=== PATIENT | female | born 1965 | race Caucasian/White ===

== ENCOUNTER 2016-06-13 10:25 | Outpatient (CLI) | payer OTHER, MEDICARE | END 2016-06-13 23:59 | DX: R06.02 Shortness of breath (principal) ==

== ENCOUNTER 2019-11-30 14:58 | Outpatient (CLI) | payer OTHER ==
--- NOTE | 2019-11-30 15:01 | XRAY Report ---
PROCEDURE: Shoulder 2 View RT INDICATIONS: RIGHT ROTATOR CUFF SYNDROME TECHNIQUE: 2 views of the shoulder were acquired. COMPARISON: None FINDINGS: Bones: No fractures or dislocations. There is a mild degree of AC joint osteoarthritis and no trauma found. No suspicious bony lesions. Visualized ribs appear intact. Soft tissues: No suspicious soft tissue calcifications. Note is made of surgical clips in a pattern suggestive of prior right breast carcinoma surgery. No osseous metastatic disease is seen.. IMPRESSION: Mild AC joint osteoarthritis, no trauma or subluxation found. Probable prior right-sided breast carcinoma surgery., Without visualized evidence of osseous metastatic disease. Reviewed by: Jose Henson MD on 11/30/2019 3:00 PM PDT Approved by: Jose Henson MD on 11/30/2019 3:00 PM PDT Station ID: [id number]
== END 2019-11-30 23:59 | disposition home or self-care (01) ==
LOC: DI.WCP 14:58
PROVIDERS: ATTEND Family Medicine
DX: M19.011 Primary osteoarthritis, right shoulder (principal)

== ENCOUNTER 2020-01-06 08:33 | Outpatient (CLI) | payer OTHER ==
--- NOTE | 2020-01-06 10:21 | MRI Report ---
PROCEDURE: Shoulder RT W/O INDICATIONS: ROTATOR CUFF SYNDROME TECHNIQUE: Noncontrast oblique coronal T2 fast spin echo with fat saturation, oblique sagittal T1 spin echo and T2 fast spin echo with fat saturation, axial T1 spin echo and T2 fast spin echo with fat saturation t hrough the shoulder. COMPARISON: None. FINDINGS: Image quality: Excellent. Rotator cuff: There is low-grade articular surface tearing of the anterior, mid, and posterior supras pinatus tendon at the humeral insertion site, with muscular tendinous junction extension. Mild T2 sig nal elevation within the anterior, mid, and posterior infraspinatus tendon at the humeral insertion s ite, indicating tendinopathy. Low-grade partial-thickness intrasubstance tearing of the upper subscap ularis tendon at the humeral insertion site. Teres minor is intact. No rotator cuff atrophy. Bones and bursae: No bone marrow contusions or fractures. Moderate acromioclavicular joint degenerat ion. The acromion demonstrates conventional anatomy, without an os acromiale. No pathologic subacro mial/subdeltoid bursal fluid is present. Capsule and soft tissues: Undercutting of the posterior superior labrum is present with a small para labral cyst posterosuperiorly. The long head of the biceps tendon demonstrates normal location and mo rphology. The rotator interval appears normal, without fibrosis. The coracohumeral ligament is norm al in thickness. IMPRESSION: 1. Partial thickness tearing of the supraspinatus tendon. No full-thickness rotator cuff tear. 2. Infraspinatus tendinopathy without tear. 3. Low-grade partial-thickness subscapularis tendon tearing. 4. Acromioclavicular joint osteoarthritis. 5. Posterior superior glenoid labral tear. Reviewed by: Lauren Dixon MD on 01/06/2020 10:20 AM [facility] Approved by: Lauren Dixon MD on 01/06/2020 10:20 AM [facility] Station ID: [id number]
== END 2020-01-06 08:34 | disposition home or self-care (01) ==
LOC: DI 08:33
PROVIDERS: ATTEND Family Medicine
DX: M75.111 Incomplete rotator cuff tear or rupture of right shoulder, not specified as traumatic (principal); M19.011 Primary osteoarthritis, right shoulder; S43.431A Superior glenoid labrum lesion of right shoulder, initial encounter

== ENCOUNTER 2021-03-14 14:38 | Outpatient (CLI) | payer OTHER ==
--- NOTE | 2021-03-14 17:19 | XRAY Report ---
PROCEDURE: Chest 2 View X-Ray INDICATIONS: SCREENING FOR TB TECHNIQUE: 2 view(s) of the chest. COMPARISON: 06/16/2016. FINDINGS: Surgical changes and devices: Numerous surgical clips in the right axillary stable. Lungs and pleura: No pleural effusions or pneumothorax. Lungs are clear. Mediastinum: Mediastinal contours are normal. Heart size is normal. Bones and chest wall: No suspicious bony abnormalities. Soft tissues appear unremarkable. IMPRESSION: No acute cardiopulmonary disease process. Reviewed by: Theresa Flores MD, PhD on 03/14/2021 5:17 PM PST Approved by: Theresa Flores MD, PhD on 03/14/2021 5:17 PM PST Station ID: [id number]
== END 2021-03-14 14:39 | disposition home or self-care (01) ==
LOC: DI.N 14:38
PROVIDERS: ATTEND Family Medicine
DX: Z11.1 Encounter for screening for respiratory tuberculosis (principal)